=== PATIENT | male | born 1940 | race Caucasian/White ===

== ENCOUNTER 2019-02-02 06:47 | Day surgery (SDC) | payer MEDICARE ==
[~2019-02-02] VITALS: Ht 180.3 cm; Wt 124.5 kg
[~2019-02-02 06:47] MED LIST: ALLO300 PO; ASCO500 PO; ASPI81CH PO; CALCAVITD PO; CHOL10002 PO; DICL75ER PO; DOXA4 PO; ENOX120I SQ; LOPE2C PO; METF500 PO; MISO200 PO; MULVITMIND; MULVITMINF PO; OLME20 PO; OXYB5 PO; TAMS.4ER PO; TRAM50 PO; VALS80 PO; WARF5 PO
[2019-02-02] MEDS ORDERED: WARF5 PO (07:58)
[2019-02-02] MEDS ORDERED: TRAM50 PO (07:58)
[2019-02-16] MEDS ORDERED: ALLO300 PO (10:04)
[2019-02-16] MEDS ORDERED: Benicar40 MG PO (10:04)
[2019-02-16] MEDS ORDERED: DOXA4 PO (10:05)
[2019-02-16] MEDS ORDERED: WARF5 PO (10:05)
[2019-02-16] MEDS ORDERED: TAMS.4ER PO (10:05)
[2019-02-16] MEDS ORDERED: Metformin HCl500 MG PO (10:05)
[2019-02-16] MEDS ORDERED: WARF2.5 PO (10:06)
[2019-02-16] MEDS ORDERED: ASCO500 PO (10:06)
[2019-02-16] MEDS ORDERED: TRAM50 PO (10:06)
[2019-02-16] MEDS ORDERED: Oxybutynin Chlo15 MG PO (10:06)
[2019-02-16] MEDS ORDERED: MULTI VITAMIN1 EACH PO (10:06)
[2019-02-16] MEDS ORDERED: VITAMIN D32000 UNIT PO (10:07)
[2019-02-16] MEDS ORDERED: Super Calcium600 MG PO (10:07)
== END 2019-02-02 09:00 | disposition home or self-care (01) ==
LOC: ORSCSDS 06:47
PROVIDERS: Ophthalmology
PROC: 08RJ3JZ Replacement of Right Lens with Synthetic Substitute, Percutaneous Approach (ICD-10-PCS; principal; 2019-02-02 08:30)
DX: H25.11 Age-related nuclear cataract, right eye (principal); H21.81 Floppy iris syndrome; I10 Essential (primary) hypertension; G47.33 Obstructive sleep apnea (adult) (pediatric); K21.9 Gastro-esophageal reflux disease without esophagitis; Z79.899 Other long term (current) drug therapy
CPT/HCPCS: 82947; J2001; J2250; J3010; J3301; V2632

== ENCOUNTER 2019-02-23 07:45 | Day surgery (SDC) | payer MEDICARE ==
[~2019-02-23] VITALS: Ht 180.3 cm; Wt 123.9 kg
[~2019-02-23 07:45] MED LIST changes: +Benicar40 MG PO; +MULTI VITAMIN1 EACH PO; +Metformin HCl500 MG PO; +Oxybutynin Chlo15 MG PO; +Super Calcium600 MG PO; +VITAMIN D32000 UNIT PO; +WARF2.5 PO
== END 2019-02-23 10:18 | disposition home or self-care (01) ==
LOC: ORSCSDS 07:45
PROVIDERS: Ophthalmology
PROC: 08RK3JZ Replacement of Left Lens with Synthetic Substitute, Percutaneous Approach (ICD-10-PCS; principal; 2019-02-23 09:30)
DX: H25.12 Age-related nuclear cataract, left eye (principal); H21.81 Floppy iris syndrome; I10 Essential (primary) hypertension; G47.33 Obstructive sleep apnea (adult) (pediatric); K21.9 Gastro-esophageal reflux disease without esophagitis; E66.01 Morbid (severe) obesity due to excess calories; Z68.38 Body mass index [BMI] 38.0-38.9, adult; Z79.899 Other long term (current) drug therapy
CPT/HCPCS: 82947; J2250; J3010; J3301; J7120; V2632

== ENCOUNTER 2019-08-06 17:46 | Inpatient (IN) | payer MEDICARE ==
[~2019-08-06] VITALS: Ht 180.3 cm; Wt 111.8 kg
[2019-08-06] MEDS ORDERED: OLME20 PO (18:28)
[2019-08-06] MEDS ORDERED: ALLO300 PO (18:28)
[2019-08-06] MEDS ORDERED: DOXA4 PO (18:29)
[2019-08-06] MEDS ORDERED: METF500 PO (18:29)
[2019-08-06] MEDS ORDERED: WARF5 PO (18:30)
[2019-08-06] MEDS ORDERED: Flomax0.4 MG PO (18:30)
[2019-08-06] MEDS ORDERED: TRAM50 PO (18:31)
[2019-08-06] MEDS ORDERED: ASCO500 PO (18:31)
[2019-08-06] MEDS ORDERED: OXYB5 PO (18:31)
[2019-08-06] MEDS ORDERED: THERA1 EACH PO (18:31)
[2019-08-06] MEDS ORDERED: THERA-D2000 UNIT PO (18:32)
[2019-08-06] MEDS ORDERED: Anti-Diarrheal2 MG (18:34)
[2019-08-06] MEDS ORDERED: Calcium 600-D1 EACH PO (18:34)
[2019-08-06] MEDS ORDERED: ACET500 PO (18:35)
[2019-08-06 19:15] LABS: Anion Gap 7 mmol/L (6-16); Blood Urea Nitrogen 20 mg/dL (8-24); Bun/Creatinine Ratio 21.6 (12.0-20.0); CO2, Blood 28 mmol/L (21-32); Calcium, Blood 12.8 mg/dL (8.5-10.1); Chloride, Blood 102 mmol/L (98-108); Creatinine, Blood 0.92 mg/dL (0.60-1.20); Glomerular Filtration Rate >60 (60-); Glucose, Blood 119 mg/dL (70-99); Sodium, Blood 137 mmol/L (136-145)
[2019-08-06 19:46] LABS: Magnesium, Blood 1.3 mg/dL (1.6-2.4); Troponin I <0.015 ng/mL (0.000-0.040)
[2019-08-06 21:11] LABS: International Normalized Ratio 3.85; Prothrombin Time Results 36.1 Sec (9.7-11.5)
[2019-08-06] MEDS ORDERED: WARF2.5 PO (22:35)
--- NOTE | 2019-08-07 04:45 | NUR ---
SHIFT SUMMARY RECEIVED REPORT FROM IVETTE MULLEN, ED @ 2136. ARRIVED TO MEDICAL FLOOR @ 2203 VIA STRETCHER WITH FAMILY AT SIDE. MINIMAL TRANSFER ASSISTANCE REQUIRED. ADMITTING DX HYPERCALCEMIA AND DEHYDRATION. CA+ 12.8 AND MG+ 1.3. RECIEVED 1L NS AND 1GM OF MG+ SULFATE IN ED. A/O, ABLE TO MAKE NEEDS KNOWN. SOME CONFUSION NOTED AT TIMES. 18G TO LFA PATENT. IV FLUIDS INFUSED ORDERED (NS, PAMIDRONATE, 2GM OF MG+ SULFATE). NO C/O PAIN/DISCOMFORT. 1P ASSIST TO BATHROOM WITH FWW. TELE MONITOR IN PLACE RUNNING AFIB @ 101 PER PCU PROFILER HAND. VSS/AFEBRILE. TRIED LOANER CPAP AND WAS UNABLE TO TOLERATE; RT STATED TO ALLOW TO KEEP OFF FOR REMAINDER OF NIGHT. NO ACUTE CHANGES THIS SHIFT. WCTM. REPORT TO MARLON MULLEN.
[2019-08-07 05:07] LABS: International Normalized Ratio 3.48
[2019-08-07 05:10] LABS: Prothrombin Time Results 32.9 Sec (9.7-11.5)
[2019-08-07 05:15] LABS: Anion Gap 6 mmol/L (6-16); Blood Urea Nitrogen 18 mg/dL (8-24); Bun/Creatinine Ratio 21.5 (12.0-20.0); CO2, Blood 27 mmol/L (21-32); Calcium, Blood 12.3 mg/dL (8.5-10.1); Chloride, Blood 105 mmol/L (98-108); Creatinine, Blood 0.84 mg/dL (0.60-1.20); Glomerular Filtration Rate >60 (60-); Glucose, Blood 108 mg/dL (70-99); Phosphorus, Blood 1.6 mg/dL (2.5-4.9); Sodium, Blood 138 mmol/L (136-145)
--- NOTE | 2019-08-07 12:28 | NUR ---
BRADYCARDIA RECEIVED REPORT FROM PCU HOLE PUNCHER STRAP REPORTING [place]. PATIENT SITTING UP IN BED AND EATING WITH FAMILY AT BEDSIDE. REPORTED TO DR. APARICIO CONTACT AND REPORT OF BRADYCARDIA AND UNKNOWN RHYTHM AT THIS TIME. PROVIDER ADVISED WILL BE REVIEWING. OBSERVED PATIENT MONITOR WITH READING OF 50S BUT APPEARS ASYMPTOMATIC AT TIME OF OBSERVATION
--- NOTE | 2019-08-07 17:29 | NUR ---
BRADYCARDIA/EKG DOCK PUMPER NOTIFIED THIS RN THAT PT HAS BEEN PERIODICALLY DIPPING DOWN INTO THE 40S SLOWLY. DOCK PUMPER, JALEN, STATED IT LOOKS LIKE WIDENING QRS'S WHEN THE RATE SLOWS DOWN. DOCK PUMPER UNSURE IF PT IS IN 1ST DEGREE OR AFIB. DR. APARICIO NOTIFIED. EKG ORDERED & OBTAINED. COMPUTED RHYTHM STATED 1ST DEGREE AV BLOCK. DR. APARICIO NOTIFIED. EKG PLACED ON FRONT OF CHART. WILL CONTINUE TO MONITOR.
--- NOTE | 2019-08-07 17:51 | NUR ---
SHIFT SUMMARY PATIENT A/O X 3. PATIENT APPEARS LETHARGIC AND CONFUSED AT A SMALL/MODERATE LEVEL AND CONFIRMED BY FAMILY. PATIENT ON TELEMETRY AND PATIENT DID HAVE SPELLS WHERE BRADYCARDIA OCCURS, PROVIDER NOTIFIED AND AWARE. ECG COMPLETED, RESULTS IN NOTES. PATIENT IS AMBULATING WITH FWW BUT EDUCATION NEEDS TO BE COMPLETED ON AMBULATION. CXR COMPLETED (2 VIEW). PATIENT SHOULD COMPLETE CT WITH CONTRAST THIS EVENING (NOT COMPLETED AT TIME OF NOTE).
--- NOTE | 2019-08-08 00:39 | NUR ---
LATE ENTRY PHYSICIAN CORRESPONDENCE 08/07/19 @ 4259 PATIENTS FAMILY STATED PATIENT HAS BEEN EXPERIENCING SOME PAIN AND ASKED IF HE COULD TAKE HIS TRAMADOL. UPON INSPECTION OF EMAR; NO TRAMADOL ORDER. FAMILY STATED THAT PATIENT TYPICALLY TAKES TRAMADOL 50 MG BID @ HOME WHICH CORRELATED TO MED REC. NEW ORDER PLACED FOR TRAMADOL 50 MG Q8H. FAMILY AWARE.
--- NOTE | 2019-08-08 05:25 | NUR ---
SHIFT SUMMARY ALERT, ANSWERS QUESTIONS APPROPRIATELY. DIFFICULTY FOLLOWING SIMPLE DIRECTIONS. INCREASINGLY WEAK. UP TO VOID ALMOST Q1H. APPEARED TO REST A FEW HOURS FROM [phone]. COOPERATIVE WITH CARE. NO C/O PAIN/DISCOMFORT. TELE RUNNING SR IN 80'S. ON HOME CPAP FOR ABOUT 1.5H; THEN REFUSED TO WEAR, STATED UNCOMFORTABLE. NO OTHER CHANGES OVERNIGHT. VSS/AFEBRILE. BED REMAINS IN LOWEST POSITION. CALL LIGHT AND BELONGINGS WITHIN REACH. WCTM. REPORT TO ONCOMING RN.
[2019-08-08 05:27] LABS: BASOPHILS ABSOLUTE AUTO 0.02 K/mm3 (0.00-0.23); BASOPHILS PERCENT AUTO 0 % (0-2); EOSINOPHILS ABSOLUTE AUTO 0.03 K/mm3 (0.00-0.68); EOSINOPHILS PERCENT AUTO 1 % (0-6); Hematocrit 34.6 % (37.0-53.0); Hemoglobin 11.4 g/dL (13.5-17.5); IMMATURE GRAN ABSOLUTE AUTO 0.02 K/mm3 (0.00-0.10); IMMATURE GRAN PERCENT AUTO 0 % (0-1); LYMPHOCYTES PERCENT AUTO 12 % (21-46); MONOCYTES ABSOLUTE AUTO 0.61 K/mm3 (0.16-1.47); MONOCYTES PERCENT AUTO 10 % (4-13); Mean Corpuscular HGB 30.4 pg (26.0-34.0); Mean Corpuscular HGB Conc 32.9 g/dL (31.5-36.5); Mean Corpuscular Volume 92 fL (80-100); Mean Platelet Volume 10.3 fL (9.1-12.4); NEUTROPHILS ABSOLUTE AUTO 4.52 K/mm3 (1.96-9.15); NEUTROPHILS PERCENT AUTO 77 % (41-73); Platelet Count 214 K/mm3 (150-400); RDW Coefficient Variation 16.2 % (11.7-14.2); RDW Standard Deviation 55.2 fL (35.1-46.3); Red Blood Cell Count 3.75 M/mm3 (4.30-5.90)
[2019-08-08 05:33] LABS: International Normalized Ratio 1.82; Prothrombin Time Results 18.3 Sec (9.7-11.5)
[2019-08-08 05:37] LABS: Magnesium, Blood 1.7 mg/dL (1.6-2.4)
[2019-08-08 05:44] LABS: Thyroid Stimulating Hormone 0.668 uIU/mL (0.360-4.800)
[2019-08-08 05:45] LABS: Alanine Aminotransfer (ALT/SGP 45 U/L (12-78); Albumin, Blood 2.6 g/dL (3.4-5.0); Albumin/Globulin Ratio 0.7 (0.8-1.8); Alk Phos 131 U/L (50-136); Anion Gap 5 mmol/L (6-16); Aspartate Aminotrans (AST/SGOT 66 U/L (12-37); Bilirubin, Total 0.7 mg/dL (0.1-1.0); Blood Urea Nitrogen 16 mg/dL (8-24); Bun/Creatinine Ratio 19.4 (12.0-20.0); CO2, Blood 27 mmol/L (21-32); Calcium, Blood 11.1 mg/dL (8.5-10.1); Chloride, Blood 106 mmol/L (98-108); Creatinine, Blood 0.83 mg/dL (0.60-1.20); Globulin, Blood 3.9 g/dL (2.2-4.0); Glomerular Filtration Rate >60 (60-); Glucose, Blood 100 mg/dL (70-99); Potassium, Blood 3.8 mmol/L (3.5-5.5); Sodium, Blood 138 mmol/L (136-145); Total Protein, Blood 6.5 g/dL (6.4-8.2)
--- NOTE | 2019-08-08 08:16 | NUR ---
2ND DEGREE AV BLOCK. PCU RAILROAD YARD WORKER, PAM CALLED AT 0815. NYASIA REPORTED THAT THE PT IS IN 2ND DEGREE AV BLOCK, [place]. PT PRIMARILY IN THE 80S BPM, THEN DROPS DOWN INTO THE 40S PERIODICALLY. NO CHANGES IN PRESENTATION. PT DOES APPEAR MORE ORIENTED THIS AM. DR. APARICIO NOTIFIED OF 2ND DEGREE BLOCK. WILL CONTINUE TO MONITOR.
--- NOTE | 2019-08-08 14:12 | NUR ---
CODE STATUS PT & FAMILY AGREED WITH THE WISH FOR THE PT TO BE A DNR. DR. APARICIO NOTIFIED. NEW ORDER PLACED. PURPLE WRISTBAND PLACED TO L WRIST.
--- NOTE | 2019-08-08 17:15 | NUR ---
Inital Spiritual Care note: Met with several family members outside of room. They are non-pentecostalism, but responded well to gentle consumer credit counselor. Moved into room where pt, spouse, and 3 sons present. Spouse is tearful, but trying not to cry. Pt said nothing and appears quite withdrawn. Clearly this family is processing dire dx. They will benefit from careful consumer credit counselor in coming days. I will remain available.
--- NOTE | 2019-08-08 17:37 | NUR ---
SHIFT SUMMARY ONCOLOGY CONSULTED THIS SHIFT FOR NEW DIAGNOSIS OF CANCER. DR. KAPOOR PLANS TO SEE PT AT 7AM TOMORROW. PT MORE LETHARGIC THIS AFTERNOON. SLEEPING MOST THE AFTERNOON. PT WEAKER & UNABLE TO FOLLOW DIRECTIONS WELL THIS AM. PT ALSO SLOWER TO RESPOND. PT CHANGED TO DNR CODE STATUS PER GISELA & PT WISHES. PALLATIVE CONSULTED & TO SEE PT TOMORROW. SLIGHT TEMP OF 100.1. EXCESS BLANKETS REMOVED. WILL CONTINUE TO MONITOR. PT MEDICATED FOR PAIN ONCE THIS SHIFT. DENIES PAIN AT THIS TIME. PT UP TO CHAIR BEFORE PT BECAME LETHARGIC TWICE FOR BREAKFAST & LUNCH. OTHER VITALS STABLE. NO OTHER CHANGES IN ASSESSMENT AT THIS TIME. WILL CONTINUE TO MONITOR UNTIL TURNOVER IS COMPLETE.
--- NOTE | 2019-08-08 22:18 | NUR ---
BEGINNING SHIFT SUMMARY ASSUMED CARE OF PT AT 1900. PT WAS LYING IN BED WATCHING TV WITH FAMILY. PT IS A/O X3, PT FAMILY WAS IN THE ROOM, FAMILY IS VERY INVOLVED WITH PT CARE. HEART SOUNDS IRREGULAR, TELE STATED RHYTHMN WAS HARD TO CONFIRM, STATED SECOND DEGREE BLOCK WITH EXIT BLOCK AT 80. LUNG SOUNDS DIMINISHED AT BASES. PT DENIES SOB, DYSPNEA, OR C/P AT THIS TIME. PT IS CONTINENT OF BOWEL AND BLADDER. PT C/O BACK PAIN, MEDICATED PER EMAR. PT IS CURRENTLY WATCHING TV IN BED, CALL LIGHT IN REACH, BED IN LOWEST POSTION, WILL CONTINUE TO MONITOR.
--- NOTE | 2019-08-09 04:35 | NUR ---
END SHIFT SUMMARY NO ACUTE CHANGES T/O THE NIGHT. PT SLEPT T/O THE NIGHT EXPECT TO USE THE COMMODE. PT DENIES PAIN AT THIS TIME. PT USED THEIR CPAP ALL NIGHT. PT IS CURRENTLY SLEEPING. CALL LIGHT IN REACH, BED IN EST POSTION, WILL CONTINUE TO MONITOR UNTIL DAYSHIFT NURSE ARRIVES.
[2019-08-09 04:57] LABS: BASOPHILS ABSOLUTE AUTO 0.02 K/mm3 (0.00-0.23); BASOPHILS PERCENT AUTO 0 % (0-2); EOSINOPHILS ABSOLUTE AUTO 0.07 K/mm3 (0.00-0.68); EOSINOPHILS PERCENT AUTO 1 % (0-6); Hematocrit 36.1 % (37.0-53.0); Hemoglobin 11.9 g/dL (13.5-17.5); IMMATURE GRAN ABSOLUTE AUTO 0.02 K/mm3 (0.00-0.10); IMMATURE GRAN PERCENT AUTO 0 % (0-1); LYMPHOCYTES ABSOLUTE AUTO 0.95 K/mm3 (0.84-5.20); LYMPHOCYTES PERCENT AUTO 14 % (21-46); MONOCYTES ABSOLUTE AUTO 0.71 K/mm3 (0.16-1.47); MONOCYTES PERCENT AUTO 11 % (4-13); Mean Corpuscular HGB 30.5 pg (26.0-34.0); Mean Corpuscular Volume 93 fL (80-100); Mean Platelet Volume 10.6 fL (9.1-12.4); NEUTROPHILS PERCENT AUTO 74 % (41-73); Platelet Count 215 K/mm3 (150-400); RDW Coefficient Variation 16.5 % (11.7-14.2); RDW Standard Deviation 55.7 fL (35.1-46.3); White Blood Cell Count 6.77 K/mm3 (4.00-11.30)
[2019-08-09 05:13] LABS: International Normalized Ratio 1.41; Prothrombin Time Results 14.5 Sec (9.7-11.5)
[2019-08-09 05:21] LABS: Alanine Aminotransfer (ALT/SGP 47 U/L (12-78); Albumin, Blood 2.7 g/dL (3.4-5.0); Albumin/Globulin Ratio 0.7 (0.8-1.8); Alk Phos 155 U/L (50-136); Anion Gap 8 mmol/L (6-16); Aspartate Aminotrans (AST/SGOT 61 U/L (12-37); Bilirubin, Total 0.7 mg/dL (0.1-1.0); Blood Urea Nitrogen 18 mg/dL (8-24); Bun/Creatinine Ratio 21.2 (12.0-20.0); CO2, Blood 25 mmol/L (21-32); Calcium, Blood 10.6 mg/dL (8.5-10.1); Chloride, Blood 106 mmol/L (98-108); Creatinine, Blood 0.85 mg/dL (0.60-1.20); Globulin, Blood 4.1 g/dL (2.2-4.0); Glomerular Filtration Rate >60 (60-); Glucose, Blood 95 mg/dL (70-99); Magnesium, Blood 1.7 mg/dL (1.6-2.4); Potassium, Blood 4.1 mmol/L (3.5-5.5); Sodium, Blood 139 mmol/L (136-145); Total Protein, Blood 6.8 g/dL (6.4-8.2)
[2019-08-09 06:58] LABS: Cancer Antigen 19-9 354.1 U/mL (2.0-37.0); Carcinoembryonic Antigen 1.1 ng/mL (0.0-3.0)
--- NOTE | 2019-08-09 10:30 | NUR ---
Initial Pal care visit made to pt and room full of family members, including , Sheryl and some children/grandchildren. Sheryl is a former cruise director for this hospital and known to me. Pt sitting in chair. He is fairly quiet and appears with slightly flat affect but answers questions appropriately when asked directly. He denies nausea, sore throat or headache. He reports some discomfort from sitting and being in bed more than he is used to. He denies pain. I am not observing nonverbal indicators of pain, anxiety, distress, sob or agitation. Family surrounding pt and had brought in Birthday cake to celebrate pt's and other family members' birthdays recently. Pt and family awaiting liver biopsy anticipated tomorrow and will proceed with discussing tx options with oncologist as an outpatient. No s/s management needs identified at this time. Pal care will remain available to pt/family for support as indicated/requested.
--- NOTE | 2019-08-09 18:16 | NUR ---
SHIFT SUMMARY PT AXO, PLEASANT AND COOPERATIVE WITH CARE THOUGH HAD DIFFICULTY RECALLING SOME ORIENTATION QUESTIONS, SLOW TO RESPOND AT TIMES. MEDICATED FOR PAIN X1 THIS SHIFT PER EMAR. VSS. UP WITH 1 ASSIST TO BSC, SHAKY AT TIMES. PT HAD CT THIS SHIFT, SEE NOTE. BED IN LOW POSITION, CALL LIGHT WITHIN REACH. MANY FAMILY MEMBERS PRESENT THROUGHOUT THE SHIFT, OFFERING SUPPORT. PT LAYING IN BED AT THIS TIME. PT CONTINUES TO HAVE POOR APPETITE. URINARY FREQUENCY.
--- NOTE | 2019-08-10 05:14 | NUR ---
SHIFT SUMMARY PT HAD UNEVENTFUL NIGHT. HAD A DIFFICULT TIME SLEEPING EARLY IN THE EVENING. REQUESTED TO SIT UP IN THE CHAIR AND THEN FELL ASLEEP SITTING UP IN THE CHAIR. ULTRAM 50 MG GIVEN X 1 FOR REPORTED BACK PAIN. MENTATION REMAINS CLEAR, PT A/O X 4. SOME WEAKNESS BUT TOLERATES GETTING UP TO BSC WELL W/ JUST A 1 ASSIST AND A FWW. URGENCY W/ VOIDING BUT VOIDING WELL. TELEMETRY REPORTED TO BE SR WITH A FIRST DEGREE HEART BLOCK WITH INTERMITTENT SECOND DEGREE TYPE 2 BLOCK BY LOGISTICS PROJECT MANAGER PRAVEEN BILLINGS. NO OTHER ACUTE CHANGES. VSS. WILL CONTINUE TO MONITOR.
[2019-08-10 05:45] LABS: International Normalized Ratio 1.37; Prothrombin Time Results 14.1 Sec (9.7-11.5)
--- NOTE | 2019-08-10 18:42 | NUR ---
SHIFT SUMMARY OX3 CONFUSED AT TIMES. OOB TO BSC FWW AND GAIT BELT. FAMILY CONCERNED ABOUT INABILITY TO TAKE CARE OF PATIENT IF DISCHARGED HOME TOMORROW AFTER LIVER BX. POOR PROGNOSIS. DANNA Lemons/ CARE MANAGEMENT SPOKE AT LENGTH WITH FAMILY TODAY. DECREASED APPETITE. MEDICATED FOR CHRONIC LOWER BACK PAIN. CONTINENT.
--- NOTE | 2019-08-11 04:33 | NUR ---
Shift Summary Patient slept intermittently overnight. He seemed to have some mild confusion upon waking up to use the commode, and he thought it was time to go get his biopsy done when it was only midnight. He was easily redirectible.
[2019-08-11 05:16] LABS: BASOPHILS ABSOLUTE AUTO 0.02 K/mm3 (0.00-0.23); BASOPHILS PERCENT AUTO 0 % (0-2); EOSINOPHILS ABSOLUTE AUTO 0.03 K/mm3 (0.00-0.68); EOSINOPHILS PERCENT AUTO 1 % (0-6); Hemoglobin 11.3 g/dL (13.5-17.5); IMMATURE GRAN ABSOLUTE AUTO 0.02 K/mm3 (0.00-0.10); IMMATURE GRAN PERCENT AUTO 0 % (0-1); LYMPHOCYTES ABSOLUTE AUTO 0.74 K/mm3 (0.84-5.20); LYMPHOCYTES PERCENT AUTO 12 % (21-46); MONOCYTES ABSOLUTE AUTO 0.56 K/mm3 (0.16-1.47); MONOCYTES PERCENT AUTO 9 % (4-13); Mean Corpuscular HGB 30.2 pg (26.0-34.0); Mean Corpuscular HGB Conc 33.2 g/dL (31.5-36.5); Mean Corpuscular Volume 91 fL (80-100); Mean Platelet Volume 9.9 fL (9.1-12.4); NEUTROPHILS ABSOLUTE AUTO 4.86 K/mm3 (1.96-9.15); NEUTROPHILS PERCENT AUTO 78 % (41-73); Platelet Count 213 K/mm3 (150-400); RDW Coefficient Variation 16.4 % (11.7-14.2); RDW Standard Deviation 54.9 fL (35.1-46.3); Red Blood Cell Count 3.74 M/mm3 (4.30-5.90); White Blood Cell Count 6.23 K/mm3 (4.00-11.30)
[2019-08-11 05:29] LABS: International Normalized Ratio 1.29; Prothrombin Time Results 13.4 Sec (9.7-11.5)
[2019-08-11 05:36] LABS: Anion Gap 6 mmol/L (6-16); Blood Urea Nitrogen 17 mg/dL (8-24); Bun/Creatinine Ratio 21.7 (12.0-20.0); CO2, Blood 24 mmol/L (21-32); Calcium, Blood 10.3 mg/dL (8.5-10.1); Chloride, Blood 106 mmol/L (98-108); Creatinine, Blood 0.78 mg/dL (0.60-1.20); Glomerular Filtration Rate >60 (60-); Glucose, Blood 92 mg/dL (70-99); Potassium, Blood 4.1 mmol/L (3.5-5.5); Sodium, Blood 136 mmol/L (136-145)
--- NOTE | 2019-08-11 13:29 | NUR ---
Pt. is doing well ,in bed resting and hopes to go home coker or next offered prayers,
--- NOTE | 2019-08-11 13:36 | NUR ---
ASSUMED CARE OF PATIENT FROM KLAUS MULLEN. I AGREE WITH PREVIOUS COMMUNITY INTEGRATION SPECIALIST AND NO ACUTE CHANGES AT THIS TIME. PT REQUESTING TO SPEAK WITH HOME HEALTH REP. LEFT A MESSAGE WITH ИРИНА JONES. CONFIRMED WITH DR RATLIFF THAT THE PATIENT WILL BE DISCHARGE HOME TODAY WITH [facility] AFTER BIOPSY THIS AFTERNOON.
[2019-08-11] MEDS ORDERED: XARELTO20 MG PO (17:48)
--- NOTE | 2019-08-11 18:32 | NUR ---
PATIENT DC'D HOME VIA W/C WITH FAMILY. OF PATIENT EXPRESSED UNDERSTANDING OF DC INSTRUCTIONS. DESPITE CHILDREN'S CONCERNS ABOUT DC HIS EXPRESSED SHE WAS MORE THAN CAPABLE OF CARING FOR HIM AT HOME. VOUCHERS GIVEN TO PATIENTS FOR XARELTO RX. WRITTEN RX PROVIDED FOR EQUIPMENT.
== END 2019-08-11 18:19 | disposition home health service (06) | DRG 640 ==
LOC: ER 17:46 → MEDS 20:54
PROVIDERS: Emergency Medicine; Hospitalist; Internal Medicine; Physician Assistant; ADMIT Internal Medicine
PROC: 0FB13ZX Excision of Right Lobe Liver, Percutaneous Approach, Diagnostic (ICD-10-PCS; principal; 2019-08-11)
DX: E83.52 Hypercalcemia (principal); G93.41 Metabolic encephalopathy; N13.8 Other obstructive and reflux uropathy; I10 Essential (primary) hypertension; K86.9 Disease of pancreas, unspecified; E11.9 Type 2 diabetes mellitus without complications; E78.5 Hyperlipidemia, unspecified; G47.30 Sleep apnea, unspecified; N40.1 Benign prostatic hyperplasia with lower urinary tract symptoms; E83.42 Hypomagnesemia; R00.1 Bradycardia, unspecified; Z86.718 Personal history of other venous thrombosis and embolism; Z79.01 Long term (current) use of anticoagulants; Z79.84 Long term (current) use of oral hypoglycemic drugs; Z79.899 Other long term (current) drug therapy; Z87.891 Personal history of nicotine dependence
CPT/HCPCS: 36415; 47000; 70470; 71046; 71260; 74177; 77012; 80048; 80053; 82306; 82330; 82378; 82652; 82947; 83036; 83735; 83970; 84100; 84443; 84484; 85025; 85610; 85651; 86301; 88307; 88341; 88342; 93005; 93010; 94660; 94762; 96365; 97116; 97162; 97530; 99285-25; A9270; G0103; J1650; J2430; J3475; J7030; J7040; Q9967

== ENCOUNTER 2019-08-17 10:32 | Inpatient (IN) | payer MEDICARE ==
[~2019-08-17] VITALS: Ht 180.3 cm; Wt 120.3 kg
[~2019-08-17 10:32] MED LIST changes: +ACET500 PO; +Anti-Diarrheal2 MG; +Calcium 600-D1 EACH PO; +Flomax0.4 MG PO; +THERA-D2000 UNIT PO; +THERA1 EACH PO; +XARELTO20 MG PO
[2019-08-17 11:04] LABS: BASOPHILS ABSOLUTE AUTO 0.02 K/mm3 (0.00-0.23); BASOPHILS PERCENT AUTO 0 % (0-2); EOSINOPHILS ABSOLUTE AUTO 0.02 K/mm3 (0.00-0.68); EOSINOPHILS PERCENT AUTO 0 % (0-6); Hematocrit 34.2 % (37.0-53.0); Hemoglobin 11.2 g/dL (13.5-17.5); IMMATURE GRAN ABSOLUTE AUTO 0.02 K/mm3 (0.00-0.10); IMMATURE GRAN PERCENT AUTO 0 % (0-1); LYMPHOCYTES ABSOLUTE AUTO 0.65 K/mm3 (0.84-5.20); LYMPHOCYTES PERCENT AUTO 7 % (21-46); MONOCYTES ABSOLUTE AUTO 0.58 K/mm3 (0.16-1.47); MONOCYTES PERCENT AUTO 7 % (4-13); Mean Corpuscular HGB 30.3 pg (26.0-34.0); Mean Corpuscular HGB Conc 32.7 g/dL (31.5-36.5); Mean Corpuscular Volume 92 fL (80-100); Mean Platelet Volume 10.4 fL (9.1-12.4); NEUTROPHILS ABSOLUTE AUTO 7.59 K/mm3 (1.96-9.15); NEUTROPHILS PERCENT AUTO 86 % (41-73); Platelet Count 274 K/mm3 (150-400); RDW Standard Deviation 57.1 fL (35.1-46.3); White Blood Cell Count 8.88 K/mm3 (4.00-11.30)
[2019-08-17 11:18] LABS: Alanine Aminotransfer (ALT/SGP 57 U/L (12-78); Albumin, Blood 2.3 g/dL (3.4-5.0); Albumin/Globulin Ratio 0.5 (0.8-1.8); Alk Phos 275 U/L (50-136); Anion Gap 7 mmol/L (6-16); Aspartate Aminotrans (AST/SGOT 82 U/L (12-37); Bilirubin, Total 0.8 mg/dL (0.1-1.0); Blood Urea Nitrogen 24 mg/dL (8-24); Bun/Creatinine Ratio 32.5 (12.0-20.0); CO2, Blood 26 mmol/L (21-32); Calcium, Blood 12.7 mg/dL (8.5-10.1); Chloride, Blood 107 mmol/L (98-108); Creatinine, Blood 0.74 mg/dL (0.60-1.20); Globulin, Blood 4.3 g/dL (2.2-4.0); Glomerular Filtration Rate >60 (60-); Glucose, Blood 89 mg/dL (70-99); Magnesium, Blood 1.9 mg/dL (1.6-2.4); Potassium, Blood 4.1 mmol/L (3.5-5.5); Sodium, Blood 140 mmol/L (136-145); Total Protein, Blood 6.6 g/dL (6.4-8.2)
[2019-08-17] MEDS ORDERED: B-121000 MC3 PO (13:36)
[2019-08-17] MEDS ORDERED: Oxybutynin Chlo15 MG PO (13:37)
[2019-08-17] MEDS ORDERED: Doxazosin Mesyla4 MG PO (13:38)
[2019-08-17] MEDS ORDERED: WARF5 (13:39)
[2019-08-17] MEDS ORDERED: XARELTO20 MG PO (13:42)
[2019-08-17 14:03] LABS: Source, Urine Catheter
[2019-08-17 14:07] LABS: Bilirubin, Urine Neg (Neg); Blood, Urine 1+ (Neg); Glucose Qualitative, Urine Neg (Neg); Ketones, Urine 1+ (Neg); Leukocyte Esterase, Urine Neg (Neg); Nitrite, Urine Neg (Neg); Protein, Urine 1+ (Neg); Urobilinogen, Urine NORM (Normal)
[2019-08-17 14:30] LABS: Appearance, Urine Clear (Clear); Color, Urine Amber (P-Yellow)
[2019-08-17 14:31] LABS: White Blood Cells, Urine 0-2 /hpf (0-5)
[2019-08-17 14:34] LABS: Bacteria Few /hpf; Calcium Oxalate Crystals Few /hpf; Red Blood Cells, Urine 0-2 /hpf (0-2); Squamous Epithelial Cells Not Seen /hpf (Few)
[2019-08-17] MEDS ORDERED: Benicar40 MG PO (16:07)
--- NOTE | 2019-08-17 16:11 | NUR ---
Provided calm presence and gentle counseling center manager to dtrCatherine, while in ED. Family is clearly overwhemled by pt's decline and uncertain POC. They will benefit from a clear explaination of illness, prognosis, and options. Prayer was appreciaited. I will remain available.
--- NOTE | 2019-08-18 01:04 | NUR ---
BEGINNING SHIFT SUMMARY ASSUMED CARE OF PT AT 1900. PT WAS LYING IN BED SLEEPING SURROUNDED BY FAMILY. PT IS CONFUSED AND HAS ATTEMPTED TO GET OUT OF BED 3X AND ATTEMPTED TO PULL OUT HIS MORGAN TWICE, RESULTING IN BLOOD AROUND THE MEADUS. PT IS LETHARGIC AND HAS A HARD TIME KEEPING A CONVERSATION OR TO FINISH A SENTENCE. HEART SOUNDS IRREGULAR, PT ON TELE SINUS WITH FIRST DEGREE BLOCK WITH OCCASIONAL PAC AT 99, PT DENIES CP AT THIS TIME. FINE CRACKLES AT THE BASES, PT DENIES SOB/DYSPNEA AT THIS TIME, PT IS REFUSING HIS CPAP AT THIS TIME, HAS NOTICED THAT HIS BREATHING HAS CHANGED TO MORE OF A GASP. ABDOMEN DISTENDED AND FIRM, BOWEL TONES HYPERACTIVE. MORGAN DRAINING CLEAR YELLOW URINE. PT HAS OPEN AREA ON HIS COCCYX, COVERED WITH MEPILEX DRESSING. PT WAS BECOMING INCREASING AGITATED T/O THE SHIFT, HOPITALIST CALLED AND PERSCRIBED ZYPREXA, PT HAS BEEN ASLEEP SINCE. CALL LIGHT IN REACH, BED IN LOWEST POSTION, WILL CONTINUE TO MONITOR.
--- NOTE | 2019-08-18 05:17 | NUR ---
END SHIFT SUMMARY PT CONTINUES TO BE CONFUSED, PT OPENS EYES TO VERBAL STIMULUS BUT DOES NOT RESPOND. PT AWOKE AGITATED VITALS TAKEN AND O2 WAS BELOW 90% AND TEMP WAS 100.9. PT WAS PLACED ON CPAP AND REPOSITIONED. PT YELLED THAT HE WANTED TO GET OUT OF HERE. STATES THAT HE IS ACTING VERY DIFFERENT AND IS UPSET WITH WHAT THE DOCTOR MIGHT SAY IN THE AM. PT SATURATION IS AT 90% T/O THE SHIFT. NO CHANGES IN TELEMETRY READINGS. PT HEAD IS HOT TO TOUCH AND HIS BODY IS COOL, AFTER RECHECKING PT TEMP IT WAS 98.6 TEMPORALLY, PT CANT TOLERATE ORAL TEMPS. PT IS CURRENTLY SLEEPING, CALL LIGHT IN REACH, BED IN LOWEST POSTION, BED ALARM ON, WILL CONTINUE TO MONITOR UNTIL DAYSHIFT NURSE ARRIVES.
[2019-08-18 05:20] LABS: Hematocrit 34.2 % (37.0-53.0); Hemoglobin 11.2 g/dL (13.5-17.5); Mean Corpuscular HGB Conc 32.7 g/dL (31.5-36.5); Mean Corpuscular Volume 92 fL (80-100); Mean Platelet Volume 10.3 fL (9.1-12.4); Platelet Count 273 K/mm3 (150-400); Red Blood Cell Count 3.73 M/mm3 (4.30-5.90); White Blood Cell Count 8.03 K/mm3 (4.00-11.30)
[2019-08-18 05:57] LABS: Alanine Aminotransfer (ALT/SGP 53 U/L (12-78); Albumin, Blood 2.2 g/dL (3.4-5.0); Albumin/Globulin Ratio 0.6 (0.8-1.8); Alk Phos 286 U/L (50-136); Anion Gap 6 mmol/L (6-16); Aspartate Aminotrans (AST/SGOT 82 U/L (12-37); Bilirubin, Total 1.2 mg/dL (0.1-1.0); Blood Urea Nitrogen 26 mg/dL (8-24); Bun/Creatinine Ratio 33.8 (12.0-20.0); CO2, Blood 27 mmol/L (21-32); Calcium, Blood 11.7 mg/dL (8.5-10.1); Chloride, Blood 108 mmol/L (98-108); Creatinine, Blood 0.77 mg/dL (0.60-1.20); Glomerular Filtration Rate >60 (60-); Glucose, Blood 78 mg/dL (70-99); Phosphorus, Blood 1.7 mg/dL (2.5-4.9); Potassium, Blood 3.9 mmol/L (3.5-5.5); Sodium, Blood 141 mmol/L (136-145); Total Protein, Blood 6.2 g/dL (6.4-8.2)
--- NOTE | 2019-08-18 11:18 | NUR ---
Pt resting in bed with his eyes closed. Pt appears comfortable with no S/S of distress at this time. Family at bedside. Listened as family discusses Dr Obregon recommendations including grim prognosis. Offered emotion support. Family reports plan for hospice. Assessed family's understanding of hospice philosophy. Educated on hospice philosophy with V/U made by family. Family reports wishes for [facility]. Discussed comfort care as an option during Pt's hospital stay. Family reports wishes for continued supportive measures with the addition of better pain management. Family is requesting a same day admission to hospice services upon Pt's discharge from hospital. No other concerns reported at this time. Spoke with Dr Lane, discussed case and family wishes including better pain management. Dr Lane is agreeable with low dose Roxanol for pain management and will place order. Discussed case with [facility] Lialisa Damico. She reports plan to meet with family today. Spoke with bedside RN Rosalina and discussed case. Palliative Care will remain available.
--- NOTE | 2019-08-18 13:35 | NUR ---
Pt visit this afternoon. Pt resting in bed with his opened but is non verbal. Pt appears comfortable at this time. Family at bedside and discussed family's decision to start comfort measures here at the hospital. Pt's daughter Catherine reports Pt woke complaining of pain and Roxanol was given. Instructed pain will be monitored and will adjust dose as needed. Family is agreeable with plan. Spoke with bedside PAZ Raymond and discussed case. D/C routine nursing orders per V/O from Dr Lane. Palliative Care will remain available for symptom management.
--- NOTE | 2019-08-18 18:04 | NUR ---
SHIFT SUMMARY- PT IS CONFUSED AND NOT RESPONDING TO QUESTIONS. FAMILY AND PATIENT WORKED WITH PALATIVE CARE NURSE TODAY, DECIDED ON COMFORT CARE FOR THE PT WITH PLANS TO DISCHARGE WITH HOME HOSPICE TOMORROW MORNING. PAIN MEDICATION GIVEN PRN, ANXIETY MEDICATION GIVEN ONCE THIS SHIFT FOR AGITATION PER FAMILY REQUEST. PT CURRENTLY SLEEPING AND COMFORTABLE.
--- NOTE | 2019-08-18 18:06 | NUR ---
Initial pal spiritual care note: Met with family throughout the day. Spouse and pt are non-scientology, but adult children are appreciative of prayer. All are tearful, but appropriate. Clearly this is happening fast. Spouse appears to be needing time to accept this. Strong support of adult children and family friends. All will benefit from continued emotional support. That said, family privacy appears to be important. Therefore, heel stiffener instinsinct a must. Pastoral services will remain available.
--- NOTE | 2019-08-18 23:01 | NUR ---
BEGINNING SHIFT SUMMARY ASSUMED CARE OF PT AT 1900. PT IS SURROUNDED BY FAMILY. PT IS LYING IN BED WITH HIS EYES CLOSED. AROUND 2099 PT BECAME AGITATED AND STARTED PULLING ON HIS CLOTHS AND CATHETER. MEDICATED PER EMAR AND REPOSTIONED. PT HAS BEEN SLEEPING SINCE, WILL STAY IN ROOM THIS NIGHT. CALL LIGHT IN REACH, BED IN LOWEST POSTION, WILL CONTINUE TO MONITOR.
--- NOTE | 2019-08-19 00:07 | NUR ---
COMFORT CARE ASSESSMENT PT IS CURRENTLY SLEEPING. FAMILY IS PRESENT. PT BREATHING WITH MOUTH OPEN. FAMILY NOTICED PT WAS WARM TO TOUCH, BLANKETS TAKEN OFF AND PT REPOSTIONED. CALL LIGHT IN REACH, BED IN LOWEST POSTION, WILL CONTINUE TO MONITOR.
--- NOTE | 2019-08-19 00:09 | NUR ---
COMFORT CARE ASSESSMENT PT BECAME AGITATED AND TRIED TO TAKE OUT LINES AND CATHETER. PT REPOSTIONED AND MEDICATED PER EMAR. PT HAS CALMED DOWN AND IS CURRENTLY SLEEPING. CALL LIGHT IN REACH, BED IN LOWEST POSTION, WILL CONTINUE TO MONITOR.
--- NOTE | 2019-08-19 01:42 | NUR ---
COMFORT CARE ASSESSMENT PT IS CURRENTLY SLEEPING, SLEEPING IN ROOM. CALL LIGHT IN REACH, BED IN LOWEST POSTION, WILL CONTINUE TO MONITOR.
--- NOTE | 2019-08-19 04:30 | NUR ---
COMFORT CARE ASSESSMENT PT OPENS EYES OCCASIONALLY BUT CANNOT FOCUS. IS MOUTH BREATHING, ORAL CARE GIVEN. CATHETER DRAINING WELL. AWAKE IN ROOM. CALL LIGHT IN REACH, BED IN LOWEST POSTION, WILL CONTINUE TO MONITOR.
--- NOTE | 2019-08-19 04:43 | NUR ---
END SHIFT SUMMARY PT CONTINUES TO BE NONVERBAL. PT OPENS HIS EYES BUT DOES NOT FOCUS ON ANYTHING. ORAL CARE GIVEN DUE TO DRY MOUTH. CATHERTER DRAINING DARK URINE. IN ROOM WITH PT. CALL LIGHT IN REACH, BED IN LOWEST POSTION, WILL CONTINUE TO MONITOR UNTIL DAYSHIFT NURSE ARRIVES.
--- NOTE | 2019-08-19 05:01 | NUR ---
COMFORT CARE ASSESSMENT PT IS SLEEPING, NO ACUTE CHANGES, CALL LIGHT IN REACH, BED IN LOWEST POSTION, WILL CONTINUE TO MONITOR.
[2019-08-19] MEDS ORDERED: MORP20L SL (09:16)
[2019-08-19] MEDS ORDERED: ATROPINE 0.01%-10 ML SL (09:16)
[2019-08-19] MEDS ORDERED: LORA.5 PO (09:17)
[2019-08-19] MEDS ORDERED: Transderm-Scop1 EACH TD (09:17)
--- NOTE | 2019-08-19 09:21 | NUR ---
Review of care needs and transfer and oral care strategies.
--- NOTE | 2019-08-19 12:34 | NUR ---
PT DISCHARGED FROM UNIT HOME WITH HOSPICE. PT LEFT WITH TRANSPORT VIA GURNEY. DISCHARGE INSTRUCTIONS REVIEWED. GAVE HARD SCRIPT TO FAMILY. NO FURTHER QUESTIONS AT THIS TIME
== END 2019-08-19 11:09 | disposition hospice, home (50) | DRG 640 ==
LOC: ER 10:32 → MEDS 10:33 → ENPENDDIS 08-19 08:41 → MEDS 08-19 11:09
PROVIDERS: Emergency Medicine; Nurse Practitioner Acute Care; ADMIT Family Medicine
DX: E83.52 Hypercalcemia (principal); G92 Toxic encephalopathy; C78.7 Secondary malignant neoplasm of liver and intrahepatic bile duct; C25.1 Malignant neoplasm of body of pancreas; E83.39 Other disorders of phosphorus metabolism; E11.9 Type 2 diabetes mellitus without complications; I10 Essential (primary) hypertension; Z86.718 Personal history of other venous thrombosis and embolism; N40.0 Benign prostatic hyperplasia without lower urinary tract symptoms; E78.5 Hyperlipidemia, unspecified; G47.33 Obstructive sleep apnea (adult) (pediatric); Z51.5 Encounter for palliative care; Z87.891 Personal history of nicotine dependence; Z66 Do not resuscitate; E66.9 Obesity, unspecified; Z68.34 Body mass index [BMI] 34.0-34.9, adult
CPT/HCPCS: 36415; 51702; 71045; 80053; 81001; 82310; 82947; 83690; 83735; 83880; 84100; 85025; 85027; 93005; 93010; 96361-59; 96374-59; 99285-25; A9270; J1940; J2060; J7030